=== PATIENT | male | born 1950 | race Caucasian/White ===

== ENCOUNTER 2016-09-18 11:25 | Outpatient (CLI) | payer OTHER ==
[~2016-09-18] VITALS: Ht 188 cm; Wt 122.2 kg
[~2016-09-18 11:25] MED LIST: CHOLESTYRAMINE210 GM PO; CULTURELLE CAP1 EACH PO; DICLOXACILLIN500 MG PO; DILTIAZEM ER180 M2 PO; ELIQUIS5 MG PO; FERROUS SULFAT325 MG PO; LIPITOR10 MG PO; MIDODRINE HCL10 MG PO; MULTI-VITAMIN1 EACH PO; NASACORT16.9 ML NOSE; NORCO 5-325 TA1 EACH PO; OXYGEN M-15; PHOSLO667 MG PO; PROTONIX40 MG PO; THIAMINE HCL100 MG PO; WARFARIN SODIUM2 MG PO; ZYLOPRIM100 MG PO
[2016-11-25] MEDS ORDERED: MIDODRINE HCL10 MG PO (13:47)
[2016-11-27] MEDS ORDERED: NORCO 5-325 TA1 EACH PO (09:20)
== END 2016-09-18 14:20 | disposition disaster alternative care site (69) ==
LOC: GCAT 11:25 → GPCU 11:25 → GPOC 12:00 → GCAT 12:20
DX: Z53.8 Procedure and treatment not carried out for other reasons (principal)
CPT/HCPCS: J0690; J1644; J7030

== ENCOUNTER → 2016-11-27 | Day surgery (SDC) | payer OTHER ==
[~2016-11-27] VITALS: Ht 188 cm; Wt 116.5 kg
--- NOTE | ~2016-11-27 | OR ---
PATIENT'S NAME: RODNEY AGUIAR [facility] AGE: 66 Y [address] ROOM: [place] [address] LOCATION: [facility] [place] ADMIT DATE: 11/27/2016 OR/Procedure Report DISCHARGE DATE: FAMILY PHYSICIAN: OSCAR ZARCO PA-C ATTENDING PHYSICIAN: SHAMAR CAPELLAN SURGEON: Shamar Capellan MD COMPENSATOR WORKER: DATE OF PROCEDURE: 11/27/2016 PREOPERATIVE DIAGNOSIS: End-stage renal disease. POSTOPERATIVE DIAGNOSIS: End-stage renal disease. PROCEDURE PERFORMED: Right arm brachiobasilic arteriovenous fistula. CLINICAL NURSING ASSISTANT: NANI Patel. ANESTHESIA: General. ESTIMATED BLOOD LOSS: 5 mL. FINDINGS: Weak thrill and bruit at the end of case. The patient's blood pressure was once again, with systolics in the 60s despite the use of Milrinone. DESCRIPTION OF PROCEDURE: The patient was brought to the operating room and placed under general anesthesia, prepped and draped in a sterile manner. Preoperative time-out was performed. The patient received preoperative antibiotics. We made a transverse incision 2 cm proximal to the antecubital fossa, dissected down to the fascia, incised the fascia in a longitudinal manner, dissected out the brachial artery. We then dissected out the basilic vein in a 360-degree fashion, we ligated and transected it distally. We then gave 5000 units of heparin. We clamped the proximal and distal artery. We made an arteriotomy to a size of 4 mm. We then did a standard 6-0 Prolene anastomosis from the vein to the artery. We removed the clamps. There was flow into the fistula which was confirmed with the use of Doppler. The patient had a very weak radial and ulnar signals. During the case, Anesthesia had difficulty measuring his blood pressure. We stitches in the past with him and they have all occluded likely due to his hypotension. I believe that his fistula also will not mature due to his hypotension. Heparin was reversed with protamine. Deep layers were closed with 2-0 and 3-0 Vicryl. Skin was closed with running 4-0 Monocryl. The patient in the operating room, tolerated the procedure well, and transferred to the recovery room and home later that day. PATIENT'S NAME: RODNEY AGUIAR [facility] AGE: 66 Y [address] ROOM: [place] [address] LOCATION: [facility] [place] ADMIT DATE: 11/27/2016 OR/Procedure Report DISCHARGE DATE: FAMILY PHYSICIAN: OSCAR ZARCO PA-C ATTENDING PHYSICIAN: SHAMAR CAPELLAN MD MAGUI BOX/modl /[id number] d: 11/28/16141 t: 12/07/161811, OPERATIVE SUMMARY
[2016-11-27 06:33] LABS: BASOPHIL # 0.1 K/uL (0.0-0.2); BASOPHIL % 0.8 %; EOSINOPHIL # 0.2 K/uL (0.0-0.5); EOSINOPHIL % 1.7 %; HEMATOCRIT 41.9 % (37.0-53.0); HEMOGLOBIN 13.3 g/dL (11.0-16.0); IMMATURE GRANULOCYTE # 0.1 K/uL (0.0-0.3); IMMATURE GRANULOCYTE % 0.7 %; LYMPHOCYTE # 2.1 K/uL (0.8-4.0); LYMPHOCYTE % 14.9 %; MCH 29.8 pg (27.0-34.0); MCHC 31.7 gm/dL (32.0-36.5); MCV 93.7 fl (83.0-98.0); MONOCYTE # 1.4 K/uL (0.0-1.0); MONOCYTE % 9.9 %; MPV 11.9 fl (9.4-12.4); NEUTROPHIL # (ANC) 10.1 K/uL (1.4-9.0); NRBC % 0 /100WBC (0-0.00); PLATELET COUNT 151 K/uL (150-450); RBC 4.47 M/uL (3.50-5.50); RDW-CV 14.4 % (11.9-14.6)
[2016-11-27 06:49] LABS: ALBUMIN 3.2 gm/dL (3.5-5.0); ANION GAP 15.3 (10.0-19.0); CALCIUM 9.6 mg/dL (8.5-10.5); CREATININE 5.7 mg/dL (0.6-1.3); POTASSIUM 4.3 mMol/L (3.7-5.1); TOTAL BILIRUBIN 0.6 mg/dL (0.0-1.5); TOTAL PROTEIN 7.4 g/dL (6.0-8.4)
--- NOTE | 2016-11-27 09:50 | NUR ---
S/B: NOTIFIED DR FRASER THAT COULD NOT FEEL THRILL/HEAR BRUIT ON RIGHT UPPER ARM FISULA R: DR FRASER STATES THAT PATIENT IS OK TO DISCHARGE AND THAT MAY NOT BE ABLE TO FEEL THRILL/HEAR BRUIT AT THIS TIME.
== END | disposition disaster alternative care site (69) ==
LOC: GPOC 11-25 10:00 → GSDC 05:24 → GPOC 05:30
PROVIDERS: Surgery Vascular Surgery
DX: I12.0 Hypertensive chronic kidney disease with stage 5 chronic kidney disease or end stage renal disease (principal); N18.6 End stage renal disease; E78.5 Hyperlipidemia, unspecified; I73.9 Peripheral vascular disease, unspecified; E66.01 Morbid (severe) obesity due to excess calories; Z98.41 Cataract extraction status, right eye; Z98.42 Cataract extraction status, left eye; Z98.890 Other specified postprocedural states; Z79.899 Other long term (current) drug therapy; Z88.2 Allergy status to sulfonamides; Z88.1 Allergy status to other antibiotic agents
CPT/HCPCS: J0690; J1644; J2001; J2405; J2720; J7030